=== PATIENT | female | born 1985 | race Caucasian/White ===

== ENCOUNTER 2016-08-02 18:22 | Emergency (ER) | payer OTHER ==
--- NOTE | 2016-08-02 19:29 | UC ---
Abdominal Pain Female HPI - History of Current Complaint Stated Complaint: FOOD POISONING Time Seen by Provider: 08/02/16 19:22 Hx Obtained From: Patient ?: No Onset/Duration: Sudden Onset - at 10 Am., Lasting Hours - 9, Still Present Timing: Constant Severity Initially: Severe Severity Currently: Severe Pain Intensity: 8 Location: Diffuse Radiates: Yes Radiates to: Back Character: Burning, Dull Aggravating Factor(s): Food - drank salt water and vomited. Alleviating Factor(s): Other: - soaking in a hot bath Associated Signs and Symptoms: Positive: Diaphoresis, Vomiting. Negative: Fever , Constipation, Blood in Stool, Decreased Appetite, Nausea, Diarrhea - Risk Factors Ectopic Risk Factor: Maternal Age ^ 30 Ovarian Torsion Risk Factor: Reproductive Age Allergies/Adverse Reactions: Allergies Allergy/AdvReac Type Severity Reaction Status Date / Time No Known Allergies Allergy Verified 08/02/16 19:41 Home Medications: Home Medications Anti Gas PRN 08/02/16 [History] Ibuprofen TAB* [Advil TAB*] 400 mg PO Q6H PRN 08/02/16 [History Confirmed ] Norethindr/Eth Estradiol(Nf) [Lo Loestrin Fe (NF)] 1 tab PO DAILY 08/02/16 [ History Confirmed 08/02/16] PMH/Surg Hx/FS Hx/Imm Hx Previously Healthy: Yes Endocrine History Of: Denies: Diabetes Respiratory History Of: Denies: Asthma - Surgical History Surgical History: Yes Surgery Procedure, Year, and Place: Breast Augmentation 2004 - Family History Known Family History: Positive: Hypertension Negative: Cardiac Disease, Diabetes - Social History Occupation: Unemployed Lives: Alone - with BF Substance Use Type: None Smoking Status (MU): Never Smoked Tobacco Have You Smoked in the Last Year: No Review of Systems Gastrointestinal: Abdominal Pain, Vomiting All Other Systems Reviewed And Are Negative: Yes Physical Exam Triage Information Reviewed: Yes Appearance: Well-Nourished, Ill-Appearing, Pain Distress Vital Signs Reviewed: Yes Eyes: Positive: Conjunctiva Clear ENT: Positive: Pharynx normal, TMs normal Neck exam: Normal Neck: Positive: No Lymphadenopathy Respiratory Exam: Normal Cardiovascular Exam: Normal Abdomen Description: Positive: Nontender, No Organomegaly, Soft Bowel Sounds: Positive: Present Musculoskeletal Exam: Normal Neurological Exam: Normal Psychological Exam: Normal Skin Exam: Normal Abd Pain Female Course/Dx - Differential Dx/Diagnosis Differential Diagnosis: Appendicitis, Bowel Obstruction, Constipation, Urinary Tract Infection Provider Diagnoses: Abdominal pain Discharge - Discharge Plan Condition: Stable Disposition: HOME Patient Education Materials: Acute Abdominal Pain (ED), Ketorolac (By injection ) Additional Instructions: IF THE PAIN GETS WORSE OR DOESN'T RESOLVE YOU HAVE TO GO TO THE ER.
[2016-08-02 19:48] VITALS: BP 122/67
--- NOTE | 2016-08-02 20:20 | RAD ---
INDICATION: Diffuse abdominal pain COMPARISON: None TECHNIQUE: A single view of the abdomen is submitted. FINDINGS: Bones: There are no acute bony findings. Soft tissues: The soft tissues appear normal. The psoas margins are sharp. Bowel gas pattern: Normal Calcifications: There are no abnormal calcifications. Other: None IMPRESSION: NO ACUTE DIAGNOSTIC FINDINGS.
[2016-08-02] MEDS ORDERED: Ketorolac INJ* 60 MG/2 ML VIAL IM ONE (20:34)
== END 2016-08-02 21:18 | disposition home or self-care (01) ==
LOC: UCCORT 18:22
DX: R10.84 Generalized abdominal pain (principal); R11.10 Vomiting, unspecified; R61 Generalized hyperhidrosis; Z32.02 Encounter for pregnancy test, result negative
CPT/HCPCS: 74000; 81003; 84702; 96372; 99202; G0463; J1885

== ENCOUNTER 2019-03-29 18:25 | Emergency (ER) | payer OTHER ==
[2019-03-29 18:35] VITALS: BP 138/90
--- NOTE | 2019-03-29 18:49 | UC ---
Throat Pain/Nasal [place] HPI - HPI Summary HPI Summary: 33-year-old woman comes in with a chief complaint of upper respiratory tract infection symptoms for 6 days. Patient's had rhinorrhea with postnasal drip. Rhinorrhea is yellow. Also had a headache. The last couple days she's also had a sore throat that hurts worse when she swallows. Ibuprofen helps with the sore throat as does a throat spray and lozenges.. No complaint of shortness breath. - History of Current Complaint Chief Complaint: UCGeneralIllness Stated Complaint: SORE THROAT Time Seen by Provider: 03/29/19 18:31 Hx Last Menstrual Period: 03/23/19 Pain Intensity: 7 - Allergies/Home Medications Allergies/Adverse Reactions: Allergies Allergy/AdvReac Type Severity Reaction Status Date / Time No Known Allergies Allergy Verified 03/29/19 18:31 Home Medications: Home Medications D-Methorphan/PE/Acetaminophen [Daytime Cold Multi-Symp Gelcap] 1 each PO ONCE [History Confirmed 03/29/19] PMH/Surg Hx/FS Hx/Imm Hx Previously Healthy: Yes - Surgical History Surgical History: Yes Surgery Procedure, Year, and Place: Breast Augmentation 2004. [facility] - Family History Known Family History: Positive: Hypertension Negative: Cardiac Disease, Diabetes - Social History Alcohol Use: Occasionally Substance Use Type: None Smoking Status (MU): Never Smoked Tobacco Have You Smoked in the Last Year: No Review of Systems All Other Systems Reviewed And Are Negative: Yes Constitutional: Positive: Other - see hpi Skin: Positive: Negative Eyes: Positive: Negative ENT: Positive: Sore Throat, Nasal Discharge, Sinus Congestion Respiratory: Positive: Negative Cardiovascular: Positive: Negative Gastrointestinal: Positive: Negative Motor: Positive: Negative Neurovascular: Positive: Negative Musculoskeletal: Positive: Negative Neurological: Positive: Negative Psychological: Positive: Negative Is Patient Immunocompromised?: No Physical Exam Triage Information Reviewed: Yes Appearance: No Pain Distress, Well-Nourished, Ill-Appearing - mild Vital Signs: Initial Vital Signs Temp 99.1 F 03/29/19 18:32 Pulse 89 03/29/19 18:32 Resp 16 03/29/19 18:32 BP 138/90 03/29/19 18:32 Pulse Ox 100 03/29/19 18:32 Vital Signs Reviewed: Yes Eye Exam: Normal Eyes: Positive: Conjunctiva Clear ENT: Positive: Pharyngeal erythema, Nasal congestion, TMs normal, Hoarse voice, Uvula midline Neck: Positive: Supple Respiratory: Positive: Lungs clear, Normal breath sounds, No respiratory distress Cardiovascular: Positive: RRR Musculoskeletal: Positive: Strength Intact, ROM Intact Neurological: Positive: Alert, Muscle Tone Normal Psychological: Positive: Age Appropriate Behavior Skin Exam: Normal Throat Pain/Nasal Course/Dx - Course Course Of Treatment: DISCUSSED VIRAL VERSES BACTERIAL INFECTIONS AND THE ROLE OF ANTIBIOTICS. THE PATIENT PREFERS TO BE ON ANTIBIOTICS AT THIS TIME. - Differential Dx/Diagnosis Provider Diagnosis: Laryngitis, Upper respiratory infection Discharge ED - Sign-Out/Discharge Documenting (check all that apply): Patient Departure All imaging exams completed and their final reports reviewed: No Studies - Discharge Plan Condition: Stable Disposition: HOME Prescriptions: Amoxicillin PO (*) [Amoxicillin 875 MG (*)] 875 mg PO BID #20 tab Patient Education Materials: Laryngitis (ED), Upper Respiratory Infection (ED) Referrals: Migue Hicks MD [Primary Care Provider] - Additional Instructions: FOLLOW UP WITH YOUR DOCTOR IF NOT COMPLETELY IMPROVED. GET REEVALUATED SOONER IF NOT IMPROVING OR WORSE OR ANY QUESTIONS OR CONCERNS. - Billing Disposition and Condition Condition: STABLE Disposition: Home
== END 2019-03-29 18:53 | disposition home or self-care (01) ==
LOC: UCCORT 18:25
DX: J04.0 Acute laryngitis (principal)
CPT/HCPCS: 87651; 99212; G0463